=== PATIENT | male | born 1945 | race Caucasian/White ===

== ENCOUNTER 2017-04-04 12:51 | Outpatient (CLI) | payer OTHER ==
--- NOTE | 2017-04-04 15:37 | DIAGNOSTIC IMAGING REPORT ---
PROCEDURE: US ABDOMEN VASCULAR-MESENTERIC INDICATION: GASTRIC PAIN AFTER EATING FINDINGS: Visualization of the abdominal aorta was attempted at the location the patient was initially scheduled ([facility]), however the tech was not confident with continuing the exam given the patient's inability to breath hold. He was transferred to [facility] imaging department where the exam was again attempted, however rapid breathing and bowel gas precluded visualization of the mid and distal abdominal aorta and aortic branches. Incidental note was made of patient's reducible, bowel containing, reducible umbilical hernia (wide neck measuring 4.3 cm), and abnormal thickened gallbladder wall, previously noted on other exam performed the same day. IMPRESSION: 1. Failed mesenteric duplex sonogram due to patient's rapid respirations and lack of good acoustic window. 2. If there is ongoing clinical concern for mesenteric ischemia, CT angiogram of the abdomen is recommended. 3. Reducible, widening, bowel containing umbilical hernia and abnormally thickened gallbladder wall.
--- NOTE | 2017-04-04 15:37 | DIAGNOSTIC IMAGING REPORT ---
PROCEDURE: US ABDOMEN VASCULAR-MESENTERIC INDICATION: GASTRIC PAIN AFTER EATING FINDINGS: Visualization of the abdominal aorta was attempted at the location the patient was initially scheduled ([facility]), however the tech was not confident with continuing the exam given the patient's inability to breath hold. He was transferred to [facility] imaging department where the exam was again attempted, however rapid breathing and bowel gas precluded visualization of the mid and distal abdominal aorta and aortic branches. Incidental note was made of patient's reducible, bowel containing, reducible umbilical hernia (wide neck measuring 4.3 cm), and abnormal thickened gallbladder wall, previously noted on other exam performed the same day. IMPRESSION: 1. Failed mesenteric duplex sonogram due to patient's rapid respirations and lack of good acoustic window. 2. If there is ongoing clinical concern for mesenteric ischemia, CT angiogram of the abdomen is recommended. 3. Reducible, widening, bowel containing umbilical hernia and abnormally thickened gallbladder wall.
== END 2017-04-04 23:00 | disposition home or self-care (01) ==
LOC: US SRH 12:51
DX: R10.13 Epigastric pain (principal)